=== PATIENT | female | born 1995 | race American Indian/Alaskan Native ===

== ENCOUNTER 2021-11-22 20:42 | Emergency (ER) | payer SELFPAY ==
[2021-11-22] MEDS ORDERED: predniSONE 20 MG TAB PO ONE (23:41)
[2021-11-22] MEDS ORDERED: valACYclovir 500 MG TAB PO ONE (23:41)
[2021-11-22] MEDS ORDERED: diphenhydrAMINE 25 MG CAP PO ONE (23:41)
--- NOTE | 2021-11-23 00:16 | Emergency Department Report ---
ED General Adult HPI - General Chief complaint: Skin Rash Stated complaint: ITCHING ALL OVER BREAKING OUT Time Seen by Provider: 11/22/21 23:41 Source: patient Mode of arrival: Ambulatory Limitations: No Limitations - History of Present Illness Initial comments: Patient a 25-year-old female who presents with a rash with lesions to face trunk abdomen x1/2 weeks patient denies fevers or chills no nausea vomiting does endorse sore throat. Patient denies suspicious sexual contact. Denies history of HSV. Lesions are itchy and painful to touch no drainage has been no fevers or chills. Patient works in [employer] service at [employer]. Patient denies other symptoms. Primary concern for presentation tonight is itching. - Related Data Previous Rx's Medication Instructions Recorded Last Taken Type Valacyclovir HCl [Valtrex] 1,000 mg PO BID #20 tab 11/23/21 Unknown Rx diphenhydrAMINE [Benadryl CAP] 25 mg PO Q8HR PRN #30 capsule 11/23/21 Unknown Rx predniSONE [Deltasone] 20 mg PO QDAY 5 Days #5 tab 11/23/21 Unknown Rx Allergies Allergy/AdvReac Type Severity Reaction Status Date / Time No Known Allergies Allergy Verified 11/22/21 20:53 ED Review of Systems ROS: Stated complaint: ITCHING ALL OVER BREAKING OUT Other details as noted in HPI Constitutional: denies: chills, fever Eyes: denies: eye pain, eye discharge, vision change ENT: denies: ear pain, throat pain Respiratory: denies: cough, shortness of breath, wheezing Cardiovascular: denies: chest pain, palpitations Endocrine: no symptoms reported Gastrointestinal: as per HPI Genitourinary: denies: urgency, dysuria, discharge Musculoskeletal: denies: back pain, joint swelling, arthralgia Skin: rash, lesions (Face trunk and abdomen) Neurological: denies: headache, weakness, paresthesias Psychiatric: denies: anxiety, depression Hematological/Lymphatic: denies: easy bleeding, easy bruising ED Past Medical Hx - Medications Home Medications: Home Medications Medication Instructions Recorded Confirmed Last Taken Type Valacyclovir HCl [Valtrex] 1,000 mg PO BID #20 tab 11/23/21 Unknown Rx diphenhydrAMINE [Benadryl CAP] 25 mg PO Q8HR PRN #30 capsule 11/23/21 Unknown Rx predniSONE [Deltasone] 20 mg PO QDAY 5 Days #5 tab 11/23/21 Unknown Rx ED Physical Exam - General Limitations: No Limitations General appearance: alert, in no apparent distress - Head Head exam: Present: normocephalic, normal inspection - Eye Eye exam: Present: PERRL, EOMI Pupils: Present: normal accommodation - ENT ENT exam: Present: normal orophraynx (No lesions no swelling no exudate), mucous membranes moist - Neck Neck exam: Present: normal inspection, full ROM. Absent: tenderness, lymphadenopathy - Respiratory Respiratory exam: Present: normal lung sounds bilaterally. Absent: respiratory distress, wheezes - Cardiovascular Cardiovascular Exam: Present: regular rate, normal rhythm, normal heart sounds. Absent: systolic murmur, diastolic murmur, rubs, gallop - GI/Abdominal GI/Abdominal exam: Present: soft, normal bowel sounds - Rectal Rectal exam: Present: deferred - Extremities Exam Extremities exam: Present: normal inspection, full ROM, normal capillary refill - Back Exam Back exam: Present: normal inspection, full ROM - Neurological Exam Neurological exam: Present: alert, oriented X3, CN II-XII intact, normal gait - Expanded Neurological Exam Expanded Patient oriented to: Present: person, place, time Speech: Present: fluid speech Motor strength exam: RUE: 5, LUE: 5, RLE: 5, LLE: 5 Best Eye Response (Henefer): (4) open spontaneously Best Motor Response (Kelli): (6) obeys commands Best Verbal Response (Kelli): (5) oriented Hen[place]er Total: 15 - Psychiatric Psychiatric exam: Present: normal affect, normal mood - Skin Skin exam: Present: warm, dry, normal color, other (Lesions round red center painful to touch face trunk and abdomen). Absent: rash ED Course Vital Signs 11/22/21 20:51 Temperature 98.9 F Pulse Rate 96 H Respiratory 18 Rate Blood Pressure 149/115 O2 Sat by Pulse 100 Oximetry ED Medical Decision Making - Medical Decision Making Lesions appear as herpatic, has been no fevers or chills patient denies suspicious sexual contact this is not likely monkeypox 1 acute proximal plan antivirals, steroids, antihistamine, patient will follow-up with health department for HSV screening / Monkey pox screening, patient verbalized agreement and understanding with discharge plan. Patient DC'd in stable condition at this time Critical care attestation.: If time is entered above; I have spent that time in minutes in the direct care of this critically ill patient, excluding procedure time. ED Disposition Clinical Impression: Skin lesions, generalized, Dermatitis Disposition: HOME / SELF CARE / HOMELESS Is pt being admited?: No Does the pt Need Aspirin: No Condition: Stable Instructions: Herpes Keratitis Additional Instructions: Take medications as prescribed, follow-up with health department for HSV and Monkey Pox screening. Return to emergency department should symptoms worsen. Prescriptions: diphenhydrAMINE [Benadryl CAP] 25 mg PO Q8HR PRN #30 capsule PRN Reason: Itching predniSONE [Deltasone] 20 mg PO QDAY 5 Days #5 tab Valacyclovir HCl [Valtrex] 1,000 mg PO BID #20 tab Referrals: [facility] [Outside] - G[facility]ELLE Forms: Work/School Release Form(ED) Time of Disposition: 00:25
[2021-11-23 00:41] VITALS: BP 137/81
== END 2021-11-23 00:42 | disposition home or self-care (01) ==
LOC: ED 20:42
DX: L98.9 Disorder of the skin and subcutaneous tissue, unspecified (principal); L30.9 Dermatitis, unspecified
CPT/HCPCS: 99282

== ENCOUNTER 2021-12-15 12:00 | Emergency (ER) | payer SELFPAY ==
[2021-12-15 12:07] VITALS: BP 147/105
== END 2021-12-15 23:17 | disposition left against medical advice (07) ==
LOC: ED 12:00
DX: S91.319A Laceration without foreign body, unspecified foot, initial encounter (principal); Z53.21 Procedure and treatment not carried out due to patient leaving prior to being seen by health care provider; X58.XXXA Exposure to other specified factors, initial encounter; Y93.89 Activity, other specified; Y92.89 Other specified places as the place of occurrence of the external cause; Y99.8 Other external cause status